=== PATIENT | male | born 1945 | race Caucasian/White ===

== ENCOUNTER 2024-01-23 06:44 | Day surgery (SDC) | payer MEDICARE, SELFPAY ==
[2023-12-27 10:16] VITALS: BMI 32.1
[2024-01-12 10:17] VITALS: BMI 31.2
--- NOTE | 2024-01-16 13:23 | PM.HPGS ---
History of Present Illness History of Present Illness Consent: Risks, benefits, and alternatives have been discussed and questions answered. Patient agrees to proceed with procedure. Chief complaint: Neoplasm screening Narrative: Neo Egan is a 78 year old male who is referred for colon cancer screening. Review of Systems Review of Systems: All systems reviewed & are unremarkable except as noted in HPI and below PMFSH Past Medical History Medical History Allergies Diabetes Dyspnea on exertion Glaucoma Hypertension Neuropathy Pre-diabetes Sciatica Tinnitus, bilateral X 40 years. Surgical History Surgical History H/O hernia repair Hx of appendectomy Hx of tonsillectomy Family History Family History Father Dementia Malignant neoplasm of prostate Mother Dementia Ovarian cancer Social History Social History Smoking status: Former smoker Tobacco type: cigarettes Alcohol intake: former Alcohol use details: rarely - beer Substance use: never Substance use type: does not use Lack of Transportation: No Lack of Food: Never True Current Housing: I Have Housing Concerned About Future Housing: No Difficulty Paying Gas/Electric Bills: No Difficulty Paying for Meds: No Currently Unemployed: No Difficulty w/ Childcare or Family Care: No Living arrangements: alone Occupation/Education: retired Gender identity (if verbalized by the patient): Male Sexual Orientation (if Verbalized by the Patient): Straight or Heterosexual Spiritual care concerns: No Meds Home Medications and Allergies Home Medications Medication Instructions Recorded Confirmed Type mecobalamin (vitamin B12) 1,000 1,000 mcg PO DAILY 07/04/22 01/23/24 History mcg chewable tablet cholecalciferol (vitamin D3) 50 150 mcg PO DAILY 12/02/22 01/23/24 History mcg (2,000 unit) capsule latanoprost 0.005 % eye drops 1 drp EACH EYE QPM 04/04/23 01/23/24 History lutein 25 mg-zeaxanthin 5 mg 1 cap PO DAILY 04/04/23 01/23/24 History capsule (Ocuvite Lutein) olmesartan 5 mg tablet (Benicar) 5 mg PO DAILY #90 tabs 09/11/23 01/23/24 Rx alpha lipoic acid 200 mg capsule 200 mg PO DAILY #90 caps 12/20/23 01/23/24 Rx gabapentin 100 mg capsule 100 mg PO TID 12/20/23 01/23/24 History magalife leg and back relief 2 tablet BYMOUTH DAILY PRN Pain 12/20/23 01/23/24 History metformin 500 mg tablet,extended 500 mg PO DAILY 12/20/23 01/23/24 History release 24 hr prostate complete 1 tablet BYMOUTH DAILY 12/20/23 01/23/24 History Allergies Allergy/AdvReac Type Severity Reaction Status Date / Time ceftriaxone [From Rocephin] Allergy Severe Unknown Verified 01/23/24 07:20 cephalexin [From Keflex] AdvReac Mild Hives Verified 01/23/24 07:20 gadobenic acid AdvReac Hives Verified 01/23/24 07:20 [From contrast - MRI] iodine AdvReac Hives Verified 01/23/24 07:20 Exam Resp: Auscultation: clear to auscultation bilaterally Cardio: Rate: regular rate Rhythm: regular rhythm GI: GI Palp: Yes Soft to palpation and No Tenderness to palpation present (GI) Assessment and Plan Assessment and plan (1) Screening for colon cancer: Code(s): Z12.11 - Encounter for screening for malignant neoplasm of colon Status: Acute Assessment and Plan: Colonoscopy with possible biopsy or polypectomy or cautery or injection of substances.
--- NOTE | 2024-01-22 07:28 | WPDANESEPPF ---
Anes - Initial Pre Proc Eval Procedure: Operation Date: 01/23/24 08:30 Proposed Procedures p Screening Colonoscopy - Reggie Linares MD Date/Time: 01/22/24 07:28 Surgeon: Reggie Linares MD Pre Op Diagnosis: Neoplasm screening Patient Data Age: 78 Gender: M Height: 1.83 m Weight: 104.5 kg Allergies Allergy/AdvReac Type Severity Reaction Status Date / Time ceftriaxone [From Rocephin] Allergy Severe Unknown Verified 01/23/24 07:20 cephalexin [From Keflex] AdvReac Mild Hives Verified 01/23/24 07:20 gadobenic acid AdvReac Hives Verified 01/23/24 07:20 [From contrast - MRI] iodine AdvReac Hives Verified 01/23/24 07:20 Home Medications Medication Instructions Recorded Confirmed Type mecobalamin (vitamin B12) 1,000 1,000 mcg PO DAILY 07/04/22 01/23/24 History mcg chewable tablet cholecalciferol (vitamin D3) 50 150 mcg PO DAILY 12/02/22 01/23/24 History mcg (2,000 unit) capsule latanoprost 0.005 % eye drops 1 drp EACH EYE QPM 04/04/23 01/23/24 History lutein 25 mg-zeaxanthin 5 mg 1 cap PO DAILY 04/04/23 01/23/24 History capsule (Ocuvite Lutein) olmesartan 5 mg tablet (Benicar) 5 mg PO DAILY #90 tabs 09/11/23 01/23/24 Rx alpha lipoic acid 200 mg capsule 200 mg PO DAILY #90 caps 12/20/23 01/23/24 Rx gabapentin 100 mg capsule 100 mg PO TID 12/20/23 01/23/24 History magalife leg and back relief 2 tablet BYMOUTH DAILY PRN Pain 12/20/23 01/23/24 History metformin 500 mg tablet,extended 500 mg PO DAILY 12/20/23 01/23/24 History release 24 hr prostate complete 1 tablet BYMOUTH DAILY 12/20/23 01/23/24 History Patient hx anesthesia problems: none Family hx anesthesia problems: none Results Review: All pre-operative results and documents have been reviewed as part of the pre-operative evaluation. [facility] Past Medical History Medical History Allergies Diabetes Dyspnea on exertion Glaucoma Hypertension Neuropathy Pre-diabetes Sciatica Tinnitus, bilateral X 40 years. Surgical History Surgical History H/O hernia repair Hx of appendectomy Hx of tonsillectomy Family History Family History Father Dementia Malignant neoplasm of prostate Mother Dementia Ovarian cancer Social History Social History Smoking status: Former smoker Tobacco type: cigarettes Alcohol intake: former Alcohol use details: rarely - beer Substance use: never Substance use type: does not use Lack of Transportation: No Lack of Food: Never True Current Housing: I Have Housing Concerned About Future Housing: No Difficulty Paying Gas/Electric Bills: No Difficulty Paying for Meds: No Currently Unemployed: No Difficulty w/ Childcare or Family Care: No Living arrangements: alone Occupation/Education: retired Gender identity (if verbalized by the patient): Male Sexual Orientation (if Verbalized by the Patient): Straight or Heterosexual Spiritual care concerns: No Anes - Eval Final PreProcedure Day of Procedure 01/22/24 07:28 Patient weight: obese Heart: regular rate and rhythm Lungs: clear to auscultation Airway: Mallampati scale class II Neurological: alert and oriented Last oral intake: >/= 8 hours ASA classification: III Emergent: no Anesthetic plan: proceed Anesthesia type and monitoring: general GIVS and standard monitoring Results Review: All pre-operative results and documents have been reviewed as part of the pre-operative evaluation. Informed Consent: The patient's anesthetic plan and its attendant risks and benefits were discussed with the patient/family/POA. Questions were solicited and answers provided to the satisfaction of the patient/family/POA.
[2024-01-23 07:21] VITALS: BP 152/90; PULSE 75; RESP 16; TEMP 36.9; O2SAT 96
[2024-01-23] MEDS: LACTATED RINGERS 1,000 ML 150 ML IV CONT (07:35)
[2024-01-23 07:39] LABS: Glucose Point of Care 129 mg/dl (65-105)
[2024-01-23 08:36] VITALS: BP 83/55; PULSE 70; RESP 16; O2SAT 92
[2024-01-23 08:46] VITALS: BP 88/57; PULSE 68; RESP 16; O2SAT 94
[2024-01-23 08:56] VITALS: BP 106/76; PULSE 62; RESP 18; O2SAT 97
--- NOTE | 2024-01-23 09:14 | SUR.PHASEII ---
WAITING FOR RIDE TO ARRIVE
--- NOTE | 2024-01-23 10:36 | WPDANESPN ---
Anes - Prog Note Post-Op Date/Time: 01/23/24 10:36 Cardiovascular status: normal Respiratory status: normal Airway patency: baseline Mental status: baseline Post-Op hydration status: normal Vital Signs: Last Vital Signs Temp 36.9 C 01/23/24 07:21 Pulse 62 01/23/24 08:56 Resp 18 01/23/24 08:56 BP 106/76 01/23/24 08:56 Pulse Ox 97 01/23/24 08:56 O2 Del Method Room Air 01/23/24 08:56 Pain Score (VAS): 0 I/O: Intake & Output 01/22/24 01/23/24 01/23/24 23:59 07:59 15:59 Intake Total 400 Balance 400 01/23/24 07:31 POC Capillary Glucose 129 H Post-procedural complaints: none Patient Feedback: Patient satisfied with anesthetic care. Other Findings: Patient vital signs back to baseline. Patient denies nausea and vomiting. Patient's pain under control. Patient OK for discharge.
== END 2024-01-23 09:27 | disposition home or self-care (01) ==
PROVIDERS: PCP Physician Assistant Medical; Visit Provider Internal Medicine Gastroenterology
PROC: 0DJD8ZZ Inspection of Lower Intestinal Tract, Via Natural or Artificial Opening Endoscopic (ICD-10-PCS; CPT 45378; principal; 2024-01-23 08:30)
DX: Z12.11 Encounter for screening for malignant neoplasm of colon (principal); D12.2 Benign neoplasm of ascending colon; K57.30 Diverticulosis of large intestine without perforation or abscess without bleeding; D12.3 Benign neoplasm of transverse colon; K64.8 Other hemorrhoids
CPT/HCPCS: 45385; 45380

== ENCOUNTER 2024-01-23 07:00 | Outpatient (NON) | payer MEDICARE, SELFPAY | END 2024-01-23 07:01 | disposition home or self-care (01) | LOC: ANHLAB 01-24 08:28 | PROVIDERS: PCP Physician Assistant Medical; Visit Provider Internal Medicine Gastroenterology | DX: Z12.11 Encounter for screening for malignant neoplasm of colon (principal); D12.3 Benign neoplasm of transverse colon; D12.2 Benign neoplasm of ascending colon | CPT/HCPCS: 88305 ==

== ENCOUNTER 2024-12-27 11:08 | Outpatient (CLI) | payer MEDICARE, SELFPAY ==
--- NOTE | ~2024-12-27 | XR_ITS ---
XR abdomen/kub 1V 12/27/2024 11:32 Indication: Hematuria Procedure: KUB Comparison: No prior studies for comparison. Findings: Bowel gas pattern is nonobstructive. Moderate colonic fecal loading. There is dextroscolios is. There are rounded calcifications overlying the right kidney which may represent gallstones or les s likely renal stones. There are pelvic phleboliths. Impression: 1: Probable gallstones versus right renal stones. Reviewed, dictated and finalized at location [facility]. Impression: 1: Probable gallstones versus right renal stones.
--- OUTSIDE RECORDS SUMMARY | 2024-12-27 11:21 | XMS_ITS | Clinical Summary ---
Author Organization 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 Gender Identity Not on file Sexual Orientation Not on file Plan of Treatment Health Maintenance Due Date Last Done Comments Hepatitis C Virus (HCV) Screening 1945 TdaP Immunization 1945 Zoster Immunization (1 of 2) 1994 Respiratory Syncytial Virus (RSV) Immunization (Adult) (1 - 1-dose 75+ series) 2019 Pneumococcal Immunization (50+ years) (2 of 2 - PPSV23) 06/10/2021 06/10/2020 Influenza Immunization (#1) 03/31/202405/01, 05/07/2019 SARS-COV-2 Immunization ( - season) 2024 Pneumococcal Immunization Combined Discontinued 06/10/2020 Hepatitis B Immunization Aged Out No longer eligible based on patient's age to complete this topic Meningococcal Immunization (ACWY) Aged Out No longer eligible based on patient's age to complete this topic Rotavirus Immunization Aged Out No lo nger eligible based on patient's age to complete this topic
== END 2024-12-27 11:09 | disposition home or self-care (01) ==
PROVIDERS: PCP Physician Assistant Medical; Visit Provider Nurse Practitioner Family
DX: R31.0 Gross hematuria (principal)
CPT/HCPCS: 74018

== ENCOUNTER 2025-01-10 08:44 | Outpatient (CLI) | payer MEDICARE, SELFPAY ==
--- NOTE | ~2025-01-10 | CT_ITS ---
Non-contrast CT scan of the Abdomen and Pelvis Clinical indication: Hematuria Technique: 2.5 mm axial scans were obtained through the abdomen and pelvis without intravenous or or al contrast. Dose reduction technique was used on this scan by utilizing automated exposure control a nd iterative reconstruction technique. The dose-length product (DLP) was 323.74 mGy-cm. Findings: Images through the lung bases reveal no abnormalities. There is no evidence of renal or ureteral calculi. The kidneys and the ureters are nondilated. The liver, spleen, pancreas, and adrenals appear normal. Calcified gallstones are present. There is n o aortic aneurysm. There is no evidence of bowel obstruction. Images through the pelvis were performed. There is no evidence of ascites or lymphadenopathy. Urinary bladder unremarkable. Prostate gland is significantly enlarged. Impression: No acute abnormality. Cholelithiasis. Marked prostatomegaly. Reviewed, dictated and finalized at [facility]. Impression: No acute abnormality. Cholelithiasis. Marked prostatomegaly.
--- OUTSIDE RECORDS SUMMARY | 2025-01-10 08:49 | XMS_ITS | Clinical Summary ---
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
== END 2025-01-10 08:45 | disposition home or self-care (01) ==
PROVIDERS: PCP Physician Assistant Medical; Visit Provider Nurse Practitioner Family
DX: K80.20 Calculus of gallbladder without cholecystitis without obstruction (principal); N40.0 Benign prostatic hyperplasia without lower urinary tract symptoms; R31.0 Gross hematuria
CPT/HCPCS: 74176